=== PATIENT | female | born 1960 | race Caucasian/White ===

== ENCOUNTER 2017-10-25 10:10 | Emergency (ER) | payer OTHER ==
[~2017-10-25] VITALS: Ht 162.6 cm; Wt 76.2 kg
[~2017-10-25 10:10] MED LIST: CARAFATE1 GM PO; CHANTIX1 MG PO; DOXYCYCLINE HY100 MG; HYDROCODON-ACE1 EA10 PO; IBUPROFEN600 MG PO; LEVOFLOXACIN500 MG PO; LEVOTHYROXINE25 MCG PO; LEVOTHYROXINE75 MCG PO; OMEPRAZOLE20 MG PO; OMEPRAZOLE40 MG PO; PROZAC40 MG PO; RANITIDINE HCL150 MG; ROBAXIN500 MG PO; ZOFRAN4 MG PO
[2017-10-25] MEDS ORDERED: AMOX TR-K CLV1 EAC1 PO (10:24)
[2017-10-25] MEDS ORDERED: FLUCONAZOLE150 MG PO (10:24)
--- NOTE | 2017-10-25 15:53 | EKG ---
[facility] [address] [facility] [place] [address] Signed Normal sinus rhythm Normal ECG No previous ECGs available Confirmed by YOANA MCCORMICK MD ([id number]) on 10/25/2017 3:53:39 PM Electronically Signed By: YOANA MCCORMICK MD 10/25/17 1553 PATIENT NAME: MARYELLEN BATES Electrocardiogram DATE OF : 56 PHYSICIAN: YOANA MCCORMICK MD REPORT #: [id number] REPORT IS CONFIDENTIAL AND NOT TO BE RELEASED WITHOUT AUTHORIZATION
== END 2017-10-25 11:32 | disposition home or self-care (01) ==
LOC: ED 10:10
DX: R07.2 Precordial pain (principal); K21.9 Gastro-esophageal reflux disease without esophagitis; F17.200 Nicotine dependence, unspecified, uncomplicated; Z85.828 Personal history of other malignant neoplasm of skin; Z90.49 Acquired absence of other specified parts of digestive tract; Z98.890 Other specified postprocedural states; Z88.2 Allergy status to sulfonamides; Z88.0 Allergy status to penicillin; Z79.899 Other long term (current) drug therapy
CPT/HCPCS: 71045; 80053; 84484; 85025; 93005; 93010; 99284

== ENCOUNTER 2019-01-07 06:21 | Emergency (ER) | payer OTHER ==
[~2019-01-07] VITALS: Ht 162.6 cm; Wt 77.1 kg
--- OUTSIDE RECORDS SUMMARY | ~2019-01-07 | XMS | Clinical Summary ---
Demographics + + + | Address | [address] [place] [address] | | | [place] [address] | + + + | Home Phone | | + + + | Preferred Language | Unknown | + + + | Marital Status | Unknown | + + + | Jainism Affiliation | Unknown | + + + | Race | Unknown | + + + | Ethnic Group | Unknown | + + + Author + + + | Author | [facility] | | | and [facility] | + + + | Organization | [facility] | | | and [place] | + + + | Address | Unknown | + + + | Phone | Unavailable | + + + Care Team Providers + +------+ + | Care Voltage Tester Name | Role | Phone | + +------+ + PP | Unavailable | + +------+ + Allergies Not on File Medications Not on file Active Problems Not on file Social History + +-------+ +--------+------+ | Tobacco Use | Types | Packs/Day | Years | Date | | | | | Used | | + +-------+ +--------+------+ | Never Assessed | | | | | + +-------+ +--------+------+ + + + | Sex Assigned at | Date Recorded | | | | + + + | Not on file | | + + + + + + + | Job Start Date | Occupation | Industry | + + + + | Not on file | Not on file | Not on file | + + + + + + + + | Travel History | Travel Start | Travel End | + + + + + + | No recent travel history available. | + + Plan of Treatment + + + + + | Health [...] + Results Not on filefrom Last 3 Months"
--- OUTSIDE RECORDS SUMMARY | ~2019-01-07 | XMS | Encounter Summary ---
Demographics + + + | Address | [address] [place] [address] | | | [place] [address] | + + + | Home Phone | | + + + | Preferred Language | Unknown | + + + | Marital Status | Single | + + + | Restoration Affiliation | Unknown | + + + | Race | Unknown | + + + | Ethnic Group | Unknown | + + + Author + + + | Author | [facility] [employer] | + + + | Organization | [facility] [employer] | + + + | Address | Unknown | + + + | Phone | Unavailable | + + + Support +--------+ +---------+ + | Name | Relationship | Address | Phone | +--------+ +---------+ + | No,One | ECON | Unknown | | +--------+ +---------+ + Care Team Providers + +------+ + | Care Clerical Production Worker Name | Role | Phone | + [...] | keratosis | [address] Vill[address] | [address]AGNER Vlilatoro | | | | | Procedures | [address] | | | | | [place] PDT [address] | [address] | [address] | | | | | PRMLG LES | [place], [place] | [place], [place] | | | | | SKN | [address] | [address] Phone: | | | | | ILLUM/ACTIVJ | Phone: | [phone] | | | | | PER DAY [place] | [phone] | Fax: | | | | | | Fax: | [phone] | | | | | [place] | [phone] | | | | | | IC ACID HCL | | | | | | | TOP | | | +--------+--------+ + + + + Encounter Details +--------+ + + + + | Date | Type | Department | Care Team | Description | +--------+ + + + + | 10/17/ | Clinical | [facility] | Gabi Benton | Dermatitis, | | 2019 | Support | Plastic Surgery and | [address] | unspecified (Primary | | | | Dermatology [address] | [address] | Dx); Actinic | | | | [address] | [place] [address] | keratosis | | | | [place] | [phone] | | | | | [address] | | | | | | [phone] | | | +--------+ + + + [...] Weight | 77.6 kg (171 lb) | 10/17/2018 2:55 PM PST | + + + + | Height | - | - | + + + + | Body Mass Index | 28.9 | 10/17/2018 2:55 PM PST | + + + + in this encounter Instructions Patient Instructions - Adrianne Cook MA - 10/17/2018 2:56 PM PST After Procedure Instructions: Please take a [...] to cover and protect the treated area. [place] on cooled filtered water frequently and /or [...] Mupirocin antibiotic ointment to prevent infection. Take mgef-izh-hdwtvfc medications such as Motrin, Advil, Ibuprofen, or Tylenol if necess eva to reduce discomfort. Remember to eat when taking these medications. Apply 1% hydrocortisone ointment (available at the pharmacy without a prescription) if itching occurs. Benadryl tablets (25mgs) may be taken an hour before sleep if there is si gnificant itching before bed. Day 3-7: Minimize sun exposure by restricting outdoor activities to ready mix truck driver or late evening and by wearing a [...] cover up make-up can be purchased from [employer] that can be worn under your regular [...] encounter Progress Notes Gabi Benton ARNP - 10/17/2018 2:56 PM PSTFormatting of this note may be differ ent from the original. Procedure: Photodynamic Therapy (PDT) Tila Castle is a 58 y.o. female patient here for the treatment of: Actinic Keratosis Primary Areas of Concern: Face Present or recent treatment with: None History of cold sores on lips, face or other treatment areas. Preventative Valtrex ordered: no Patient will bring to the treatment: Broad Brimmed Hat Pre-treatment pictures taken: no Risks and benefts [...] removed if applicable. Acetone applied. Levulan applied. 1 stick(s) (aminolevulinic acid HCL 20%, 354 mg/1.5 ml per stick). [facility] 51862-137-75. Lot #: [id number] Exp. Date: 06/20 Incubation Time. 1 hour Safety goggles applied before treatment. Applied by: Adrianne Coronel Start Time: 4:00pm Pain: Tx Time: 7 min Pain: 6 End time:417 Tx Time: end 17 min Pain: 5 Assessment/Plan: Patient leaving office with sun protection: yes Patient will have at home: OTC Cream Pt tolerated treatment well and all questions were addressed and answered. Pt will call for questions or concerns and follow up as recommended. After care instructions given via AVS discharge. Follow up appointment made. Visit Diagnoses and Associated Orders: Tila was seen today for procedure. Dermatitis, unspecified - hydrocortisone 2.5 % cream; apply Actinic keratosis I, Adrianne Coronel CMA, am scribing for, and in the presence of DILAN Pearson , CHILD AND YOUTH PROGRAM ASSISTANT-SHAN, SARANYA I, MOON Pearson DCNP, personally performed [...] DR | | | | | | [place] [address] | | | | | | [phone] | | | | | | | | +--------+---------+ + + + as of this encounter Visit Diagnoses + + | Diagnosis | + + | Dermatitis, unspecified - Primary | + + | Actinic keratosis | + +"
--- OUTSIDE RECORDS SUMMARY | ~2019-01-07 | XMS | Encounter Summary ---
Demographics + + + | Address | [address] [place] [address] | | | [place] [address] | + + + | Home Phone | | + + + | Preferred Language | Unknown | + + + | Marital Status | Single | + + + | Scientologist Affiliation | Unknown | + + + | Race | Unknown | + + + | Ethnic Group | Unknown | + + + Author + + + | Author | [facility] [employer] | + + + | Organization | [facility] [employer] | + + + | Address | Unknown | + + + | Phone | Unavailable | + + + Support +--------+ +---------+ + | Name | Relationship | Address | Phone | +--------+ +---------+ + | No,One | ECON | Unknown | | +--------+ +---------+ + Care Team Providers + +------+ + | Care Butter Wrapper Name | Role | Phone | + [...] [address] | | | | | [place] PDT [address]STR | [address] | [address] | | | | | PRMLG LES | [place], [place] | [place], [place] | | | | | [place]N | [address] | [address] Phone: | | | | | ILLUM/ACTIVJ | Phone: | [phone] | | | | | PER DAY [place] | [phone] | Fax: | | | | | | Fax: | [phone] | | | | | [place] | [phone] | | | | | | IC ACID HCL | | | | | | | TOP | | | +--------+--------+ + + + + Encounter Details +--------+ + + + + | Date | Type | Department | Care Team | Description | +--------+ + + + + | 11/01/ | Clinical | [facility] | Gabi Benton | Actinic keratosis | | 2019 | Support | Plastic Surgery and | [address] | (Primary Dx) | | | | Dermatology [address] | [address] | | | | | [address] | [facility] [place] [address] | | | | | [place] | [phone] | | | | | [address] | | | | | | [phone] | | | +--------+ + + + [...] to cover and protect the treated area. [place] on cooled filtered water frequently and /or [...] Mupirocin antibiotic ointment to prevent infection. Take dngi-cyk-mxhakgx medications such as Motrin, Advil, Ibuprofen, or Tylenol if necess eva to reduce discomfort. Remember to eat when taking these medications. Apply 1% hydrocortisone ointment (available at the pharmacy without a prescription) if itching occurs. Benadryl tablets (25mgs) may be taken an hour before sleep if there is si gnificant itching before bed. Day 3-7: Minimize sun exposure by restricting outdoor activities to shactor helper or late evening and by wearing a [...] cover up make-up can be purchased from [employer] that can be worn under your regular [...] HCL 20%, 354 mg/1.5 ml per stick). [facility] 15420-049-66. Lot #: [id number] Exp. Date: 06/20 Incubation Time. 2 hour [...] the presence of Gabi Benton, MSN , IT SUPPORT MANAGER-SHAN, SARANYA I, MOON Pearson DCNP, personally performed [...] DR | | | | | | [place] [address] | | | | | | [phone] | | | | | | | | +--------+---------+ + + + as of this encounter Visit Diagnoses + + | Diagnosis | + + | Actinic keratosis - Primary | + +
--- OUTSIDE RECORDS SUMMARY | ~2019-01-07 | XMS | Encounter Summary ---
Demographics + + + | Address | [address] [place] [address] | | | [place] [address] | + + + | Home Phone | | + + + | Preferred Language | Unknown | + + + | Marital Status | Single | + + + | Congregational Affiliation | Unknown | + + + | Race | Unknown | + + + | Ethnic Group | Unknown | + + + Author + + + | Author | [facility] [employer] | + + + | Organization | [facility] [employer] | + + + | Address | Unknown | + + + | Phone | Unavailable | + + + Support +--------+ +---------+ + | Name | Relationship | Address | Phone | +--------+ +---------+ + | No,One | ECON | Unknown | | +--------+ +---------+ + Care Team Providers + +------+ + | Care Screen Operator Name | Role | Phone | + [...] [address] | | | | | [place] PDT [address]STR | [address] | [address] | | | | | PRMLG LES | [place], [place] | [place] | | | | | [place]N | [address] | [address] Phone: | | | | | ILLUM/ACTIVJ | Phone: | [phone] | | | | | PER DAY [place] | [phone] | Fax: | | | | | | Fax: | [phone] | | | | | [place] | [phone] | | | | | | IC ACID HCL | | | | | | | TOP | | | +--------+--------+ + + + + Encounter Details +--------+ + + + + | Date | Type | Department | Care Team | Description | +--------+ + + + + | 11/01/ | Clinical | [facility] | Gabi Benton | Actinic keratosis | | 2019 | Support | Plastic Surgery and | [address] | (Primary Dx) | | | | Dermatology [address] | [address] | | | | | [address] | [facility] [place] [place] [address] | | | | | [place] | [phone] | | | | | [address] | | | | | | [phone] | | | +--------+ + + + [...] to cover and protect the treated area. [place] on cooled filtered water frequently and /or [...] Mupirocin antibiotic ointment to prevent infection. Take mvwz-rxk-gmsklfk medications such as Motrin, Advil, Ibuprofen, or Tylenol if necess eva to reduce discomfort. Remember to eat when taking these medications. Apply 1% hydrocortisone ointment (available at the pharmacy without a prescription) if itching occurs. Benadryl tablets (25mgs) may be taken an hour before sleep if there is si gnificant itching before bed. Day 3-7: Minimize sun exposure by restricting outdoor activities to uke operator or late evening and by wearing a [...] cover up make-up can be purchased from [employer] that can be worn under your regular [...] ml per stick). [facility] [id number]. Lot #: [id number] Exp. Date: 06/20 Incubation Time. 2 hour [...] the presence of Gabi Benton, MSN , MMA FIGHTER-SHAN, SARANYA I, MOON Pearson DCNP, personally performed [...] DR | | | | | | [place] [address] | | | | | | [phone] | | | | | | | | +--------+---------+ + + + as of this encounter Visit Diagnoses + + | Diagnosis | + + | Actinic keratosis - Primary | + +
--- OUTSIDE RECORDS SUMMARY | ~2019-01-07 | XMS | Encounter Summary ---
Demographics + + + | Address | [address] [place] [address] | | | [place] [address] | + + + | Home Phone | | + + + | Preferred Language | Unknown | + + + | Marital Status | Single | + + + | Hinduism Affiliation | Unknown | + + + | Race | Unknown | + + + | Ethnic Group | Unknown | + + + Author + + + | Author | [facility] [employer] | + + + | Organization | [facility] [facility] | + + + | Address | Unknown | + + + | Phone | Unavailable | + + + Support +--------+ +---------+ + | Name | Relationship | Address | Phone | +--------+ +---------+ + | No,One | ECON | Unknown | | +--------+ +---------+ + Care Team Providers + +------+ + | Care Senior Business Broker Name | Role | Phone | + [...] [address] | | | | | [place] PDT [address]STR | [address] | [address] | | | | | PRMLG LES | [place], [place] | [place] | | | | | [place]N | [address] | [address] Phone: | | | | | ILLUM/ACTIVJ | Phone: | [phone] | | | | | PER DAY [place] | [phone] | Fax: | | | | | | Fax: | [phone] | | | | | [place] | [phone] | | | | | | IC ACID HCL | | | | | | | TOP | | | +--------+--------+ + + + + Encounter Details +--------+ + + + + | Date | Type | Department | Care Team | Description | +--------+ + + + + | 10/17/ | Clinical | [facility] | Gabi Benton | Dermatitis, | | 2019 | Support | Plastic Surgery and | [address] | unspecified (Primary | | | | Dermatology [address] | [address] | Dx); Actinic | | | | [address] | [place] [address] | keratosis | | | | [place] | [phone] | | | | | [address] | | | | | | [phone] | | | +--------+ + + + [...] to cover and protect the treated area. [place] on cooled filtered water frequently and /or [...] Mupirocin antibiotic ointment to prevent infection. Take cumv-raq-vdzjkey medications such as Motrin, Advil, Ibuprofen, or Tylenol if necess eva to reduce discomfort. Remember to eat when taking these medications. Apply 1% hydrocortisone ointment (available at the pharmacy without a prescription) if itching occurs. Benadryl tablets (25mgs) may be taken an hour before sleep if there is si gnificant itching before bed. Day 3-7: Minimize sun exposure by restricting outdoor activities to cyber legal advisor or late evening and by wearing a [...] cover up make-up can be purchased from [employer] that can be worn under your regular [...] ml per stick). [facility] [id number]. Lot #: [id number] Exp. Date: 06/20 Incubation Time. 1 hour [...] in the presence of DILAN Pearson , DIGITAL ANALYTICS MANAGER-SHAN, SARANYA I, MOON Pearson DCNP, personally [...] DR | | | | | | [place] [address] | | | | | | [phone] | | | | | | | | +--------+---------+ + + + as of this encounter Visit Diagnoses + + | Diagnosis | + + | Dermatitis, unspecified - Primary | + + | Actinic keratosis | + +"
--- OUTSIDE RECORDS SUMMARY | ~2019-01-07 | XMS | Clinical Summary ---
Demographics + + + | Address | [address] [place] [address] | | | [place] [address] | + + + | Home Phone | | + + + | Preferred Language | Unknown | + + + | Marital Status | Single | + + + | Taoist Affiliation | Unknown | + + + | Race | Unknown | + + + | Ethnic Group | Unknown | + + + Author + + + | Author | [facility] [employer] | + + + | Organization | [facility] [employer] [facility] | + + + | Address | Unknown | + + + | Phone | Unavailable | + + + Support +--------+ +---------+ + | Name | Relationship | Address | Phone | +--------+ +---------+ + | No,One | ECON | Unknown | | +--------+ +---------+ + Care Team Providers + +------+ + | Care Printing Manager Name | Role | Phone | + [...] | | e | | e 1 %-[id number] | | | | 18 | | [...] Gabi Benton | Actinic keratosis | | 2018 | Support | | [address] | (Primary Dx) | +--------+ + + + + | 10/17/ | Clinical | | Gabi Benton | Dermatitis, | | 2018 | Support | | [address] | unspecified (Primary | | | | | | Dx); Actinic | | | | | | keratosis | +--------+ + + + + from [...] | | Gabi Benton | | | 2018 | Visit | | [address] | | | | | | [address] | | | | | | [place] [address] | | | | | | [phone] | | | | | | | [...] +------+-------+ + | MEDICAID | [place] | [id number] | | | [address] | | | N | | | | [place] | | | [place] | | | | [address] | | | JUNIOR NETWORK ADMINISTRATOR | | | | | + +--------+ [...] | Self [birth year] Home: | [address] | | | al/Fam | | 1960 | [phone] | [place] [address] | | | evelio | | | [phone] | | + +--------+ +--------+ + +
--- OUTSIDE RECORDS SUMMARY | ~2019-01-07 | XMS | Clinical Summary ---
Demographics + + + | Address | [address] [place] [address] | | | [place] [address] | + + + | Home Phone [...] + + + | Author | [facility] [employer] | + + + | Organization | [facility] [employer] [facility] | + + + | Address | Unknown | + + + | Phone | Unavailable | + + + Support +--------+ +---------+ + | Name | Relationship | Address | Phone | +--------+ +---------+ + | No,One | ECON | Unknown | | +--------+ +---------+ + Care Team Providers + +------+ + | Care Car Loader Name | Role | Phone | + [...] | | e | | e 1 %-[id number] | | | | 18 | | [...] | | | | | [place] [address] | | | | | | [phone] | | | | | | | [...] +------+-------+ + | MEDICAID | [place] | [id number] | | | [address] | | | N | | | | [place] | | | [place] | | | | [address] | | | FIGURE MODEL | | | | | + +--------+ [...] | Self | [birth year] | Home: | [address] [facility] [facility] [facility] | | | al/Fam | | 1960 | [phone] | [place] [address] | | | evelio | | | [phone] | | + +--------+ +--------+ + +
--- OUTSIDE RECORDS SUMMARY | ~2019-01-07 | XMS | Clinical Summary ---
Demographics + + + | Address | [address] [place] [address] | | | [place] [address] | + + + | Home Phone | | + + + | Preferred Language | Unknown | + + + | Marital Status | Unknown | + + + | Alevism Affiliation | Unknown | + + + | Race | Unknown | + + + | Ethnic Group | Unknown | + + + Author + + + | Author | [facility] | | | and [facility] | + + + | Organization | [facility] | | | and [place] | + + + | Address | Unknown | + + + | Phone | Unavailable | + + + Care Team Providers + +------+ + | Care Wash Driller Name | Role | Phone | + [...]
[~2019-01-07 06:21] MED LIST changes: +AMOX TR-K CLV1 EAC1 PO; +COMBIVENT RESPIM4 GM INH; +FLONASE ALLERG9.9 ML NAS; +FLUCONAZOLE150 MG PO; +G TUSSIN AC LI473 ML PO; +LEVAQUIN500 MG PO; +METFORMIN HCL500 MG PO
--- OUTSIDE RECORDS SUMMARY | 2019-01-07 06:24 | XMS ---
PreManage Notification: MARYELLEN BATES Security Cut Off Sawyer Log Events No recent Security Events currently on file CRITERIA MET - [facility] - Has Care Guidelines CARE PROVIDERS GEOVANI GROSS Hospitalist 09/12/2018-Current PHONE: Unknown Amalia has no Care Guidelines for this patient. Care History Medical/Surgical 09/13/2018 [facility] - Patient is currently established with [facility]. If patient is seen in the ED during business hours. Please contact CHWs at [facility]. Care Recommendation: This patient has had 5 or more Emergency Department visits in the last 12 months.\T\nbsp; Patient requires education on the scope and purpose of the ED as an acute care provider not a Primary Care Provider and should not be utilized for chronic conditions.\T\nbsp; These are guidelines and the provider should exercise clinical judgment when providing care. E.D. VISIT COUNT (12 MO.) 3 [facility] TOTAL 3 NOTE: Visits indicate total known visits. ED/UCC VISIT TRACKING (12 MO.) 01/07/2019 06:21 [facility] [place] TYPE: Emergency COMPLAINT: - ABD PAIN/BACK PAIN 09/12/2018 13:51 [facility] [place] TYPE: Emergency COMPLAINT: - FEVER DIAGNOSES: - Other manager terminal (current) drug therapy - Gastro-esophageal reflux disease without esophagitis - Allergy status to sulfonamides status - Bronchitis, not specified as acute or chronic - Personal history of nicotine dependence - Fever, unspecified - rodent exterminator (current) use of oral hypoglycemic drugs - Chronic sinusitis, unspecified - Allergy status to other antibiotic agents status 09/08/2018 13:35 [facility] [place] TYPE: Emergency COMPLAINT: - COUGH/CONGESTION DIAGNOSES: - Cough INPATIENT VISIT TRACKING (12 MO.) No inpatient visits to display in this time frame [email or web address]
[2019-01-07] MEDS ORDERED: DICYCLOMINE HCL20 MG PO (09:53)
== END 2019-01-07 10:12 | disposition home or self-care (01) ==
LOC: ED 06:21
DX: R10.11 Right upper quadrant pain (principal); R10.12 Left upper quadrant pain; F17.200 Nicotine dependence, unspecified, uncomplicated; Z88.2 Allergy status to sulfonamides; Z88.1 Allergy status to other antibiotic agents
CPT/HCPCS: 74177; 80053; 81001; 83690; 85025; 96374; 96375; 99284-25; 99406; J1170; J2405; Q9967

== ENCOUNTER 2019-01-23 10:28 | Emergency (ER) | payer OTHER ==
[~2019-01-23] VITALS: Ht 162.6 cm; Wt 77.6 kg
--- OUTSIDE RECORDS SUMMARY | ~2019-01-23 | XMS | Clinical Summary ---
Demographics + + + | Address | [id number] [place] [address] | | | [place] [address] | + + + | Home Phone | | + + + | Preferred Language | Unknown | + + + | Marital Status | Single | + + + | Scientology Affiliation | Unknown | + + + | Race | Unknown | + + + | Ethnic Group | Unknown | + + + Author + + + | Author | [facility] | + + + | Organization | [facility] | + + + | Address | Unknown | + + + | Phone | Unavailable | + + + Support +--------+ +---------+ + | Name | Relationship | Address | Phone | +--------+ +---------+ + | No,One | ECON | Unknown | | +--------+ +---------+ + Care Team Providers + +------+ + | Care Counter Weigher Name | Role | Phone | + +------+ + | Patrice Chance MD | PP | | + +------+ + Allergies + + + + + + | Active Allergy | Reactions | Severity | Noted | Comments | | | | | Date | | + + + + + + | Amoxicillin-Pot | Other (See Comments) | Medium | 06/10/20 | Yeast infection | | Clavulanate | | | 18 | | + + + + + + | Azithromycin | Nausea and Vomiting | Low | 10/13/19 | | | | | | 19 | | + + + + + + | Sulfa Antibiotics | Other (See Comments) | Medium | 06/10/20 | Pt stated that | | | | | 18 | cannot focus when on | | | | | | the medication | + + + + + + Current Medications + + +--------+---------+------+------+-------+ | Prescription | Sig. | Disp. | Refills | Star | End | Statu | | | | | | t | Date | s | | | | | | Date | | | + + +--------+---------+------+------+-------+ | levothyroxine | | | | 09 | | Activ | | (SYNTHROID) 88 MCG | | | | 02/17 | | e | | tablet | | | | 18 | | | + + +--------+---------+------+------+-------+ | omeprazole | | | | 05/01 | | Activ | | (PRILOSEC) 20 MG | | | | 8/20 | | e | | capsule | | | | 18 | | | + + +--------+---------+------+------+-------+ | CHANTIX CONTINUING | | | | 05/02 | | Activ | | MONTH FLOR 1 MG | | | | 2 | | e | | tablet | | | | 18 | | | + + +--------+---------+------+------+-------+ | hydrocortisone 2.5 | Apply 1-2 times | 30 g | 3 | 10/01 | 10/01 | Activ | | % creamIndications: | daily to itchy dry | | | 04/19 | 04/19 | e | | Dermatitis, | face.. Best applied | | | 19 | 20 | | | unspecified | to damp skin. | | | | | | + + +--------+---------+------+------+-------+ | albuterol | Inhale 2 puffs into | | | | | Activ | | (PROVENTIL | the lungs every 4 | | | | | e | | HFA;VENTOLIN HFA) | (four) hours as | | | | | | | 108 (90 Base) | needed for Wheezing. | | | | | | | MCG/ACT inhaler | | | | | | | + + +--------+---------+------+------+-------+ + + + + +------+------+-------+ | Hospital, Clinic, or | Ordered | Route | Frequency | Star | End | Statu | | Other Facility | Dose | | | t | Date | s | | Administered | | | | Date | | | | Medication | | | | | | | + + + + +------+------+-------+ | | 1 mL | INFILTRA | Once | 10/2 | | Activ | | lidocaine-EPINEPHrin | | TION | | 6/20 | | e | | e 1 %-1:[id number] | | | | 18 | | | | injection 1 | | | | | | | | mLIndications: | | | | | | | | Neoplasm of | | | | | | | | uncertain behavior | | | | | | | | of skin | | | | | | | + + + + +------+------+-------+ Active Problems No known active problems Encounters +--------+ + + + + | Date | Type | Specialty | Care Team | Description | +--------+ + + + + | 11/01/ | Clinical | | Gabi Benton | Actinic keratosis | | 2019 | Support | | [facility] | (Primary Dx) | +--------+ + + + + from Last 3 Months Social History + +-------+ +--------+------+ | Tobacco Use | Types | Packs/Day | Years | Date | | | | | Used | | + +-------+ +--------+------+ | Former Smoker | | | | | + +-------+ +--------+------+ + +---+---+---+ | Smokeless Tobacco: | | | | | Never Used | | | | + +---+---+---+ + + + | Sex Assigned at | Date Recorded | | | | + + + | Not on file | | + + + Last Filed Vital Signs + + + + | Vital Sign | Reading | Time Taken | + + + + | Blood Pressure | - | - | + + + + | Pulse | - | - | + + + + | Temperature | - | - | + + + + | Respiratory Rate | - | - | + + + + | Oxygen Saturation | - | - | + + + + | Inhaled Oxygen | - | - | | Concentration | | | + + + + | Weight | 77.6 kg (171 lb) | 11/01/2018 9:26 AM PST | + + + + | Height | 163 cm (5' 4.17") | 11/01/2018 9:26 AM PST | + + + + | Body Mass Index | 29.19 | 11/01/2018 9:26 AM PST | + + + + Plan of Treatment +--------+---------+ + + + | Date | Type | Specialty | Care Team | Description | +--------+---------+ + + + | 01/29/ | Office | | Gabi Benton | | | 2019 | Visit | | [facility] [address] | | | | | | [address] | | | | | | [place] [address] | | | | | | [phone] | | | | | | | | +--------+---------+ + + + + + + + + | Health Maintenance | Due Date | Last Done | Comments | + + + + + | Vaccine: | | | | | Dtap/Tdap/Td (1 - | 7 | | | | Tdap) | | | | + + + + + | Cervical Cancer | | | | | Screening (Pap) | 8 | | | + + + + + | Breast Cancer | | | | | Screening | 8 | | | | (Mammogram) | | | | + + + + + | Colon Cancer | | | | | Screening | 8 | | | | (Colonoscopy) | | | | + + + + + | Vaccine: Zoster (1 | | | | | of 2) | 8 | | | + + + + + | Vaccine: Influenza | | | | | (Season Ended) | 9 | | | + + + + + Results Not on filefrom Last 3 Months Insurance + +--------+ +------+-------+ + | Payer | Benefi | Subscriber | Type | Phone | Address | | | t Plan | ID | | | | | | / | | | | | | | Group | | | | | + +--------+ +------+-------+ + | MEDICAID | [employer] | [id number] | | | [address] | | | N | | | | [place] | | | [place] | | | | [phone] | | | 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
--- OUTSIDE RECORDS SUMMARY | ~2019-01-23 | XMS | Clinical Summary ---
Demographics + + + | Address | [address] [place] [address] | | | [place] [address] | + + + | Home Phone | | + + + | Preferred Language | Unknown | + + + | Marital Status | Single | + + + | Christian Affiliation | Unknown | + + + | Race | Unknown | + + + | Ethnic Group | Unknown | + + + Author + + + | Author | [facility] | + + + | Organization | [facility] | + + + | Address | Unknown | + + + | Phone | Unavailable | + + + Support +--------+ +---------+ + | Name | Relationship | Address | Phone | +--------+ +---------+ + | No,One | ECON | Unknown | | +--------+ +---------+ + Care Team Providers + +------+ + | Care Car Worker Helper Name | Role | Phone | + [...] | | e | | e 1 %-1:[id number] | | | | [address] | | [address] | | | | | | [place] [address] | | | | | | [phone] | | | | | | | [...] +------+-------+ + | MEDICAID | [employer] | [id number] | | | [address] | | | N | | | | [place] | | | [place] | | | | [address] | | | 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
--- OUTSIDE RECORDS SUMMARY | ~2019-01-23 | XMS | Encounter Summary ---
Demographics + + + | Address | [address] | | | [place] [address] | + + + | Home Phone | | + + + | Preferred Language | Unknown | + + + | Marital Status | Single | + + + | Jain Affiliation | Unknown | + + + | Race | Unknown | + + + | Ethnic Group | Unknown | + + + Author + + + | Author | [facility] | + + + | Organization | [facility] | + + + | Address | Unknown | + + + | Phone | Unavailable | + + + Support +--------+ +---------+ + | Name | Relationship | Address | Phone | +--------+ +---------+ + | No,One | ECON | Unknown | | +--------+ +---------+ + Care Team Providers + +------+ + | Care Customer Relations Representative Name | Role | Phone | + +------+ + | Patrice Chance MD | PCP | | + +------+ + Reason for Visit + + + | Reason | Comments | + + + | Procedure | | + + + Consult and Treat (Routine) +--------+--------+ + + + + | Status | Reason | Specialty | Diagnoses / | Referred By | Referred To | | | | | Procedures | Contact | Contact | +--------+--------+ + + + + | Closed | | Dermatology / | Diagnoses | [facility], | [facility], | | | | Plastic | Actinic | Gabi | Gabi | | | | Surgery | keratosis | [facility] | [facility]AGNER Villatoro | | | | | Procedures | [address] | | | | | [place] PDT [address]STR | [address] | [address] | | | | | PRMLG LES | [place], [place] | [place], [place] | | | | | [place]N | [address] | [address] Phone: | | | | | ILLUM/ACTIVJ | Phone: | [phone] | | | | | PER DAY [place] | [phone] | Fax: | | | | | | Fax: | [phone] | | | | | AMINOLEVULIN | [phone] | | | | | | IC ACID HCL | | | | | | | TOP | | | +--------+--------+ + + + + Encounter Details +--------+ + + + + | Date | Type | Department | Care Team | Description | +--------+ + + + + | 11/01/ | Clinical | [facility] | Gabi Benton | Actinic keratosis | | 2019 | Support | Plastic Surgery and | [facility] [address] | (Primary Dx) | | | | Dermatology [address] | [address] | | | | | [address] | [facility] [place] [address] | | | | | [place] | [phone] | | | | | [address] | | | | | | [phone] | | | +--------+ + + + + Social History + +-------+ +--------+------+ | Tobacco [...] on file | | + + + as of this encounter Last Filed Vital Signs + + + [...] AM PST | + + + + in this encounter Instructions Patient Instructions - Adrianne Cook MA - 11/01/2018 9:26 AM PST After Procedure Instructions: Please take a shower in cool water after returning home from treatment. Use a mild soap or just rinse the treated area well to remove all Levulan. If you wish, you may begin applying pure Aloe directly from the plant leaf to reduce dis comfort. The aloe plant leaves maybe refrigerated for added relief of discomfort. Begin applying ice packs or frozen peas to treated area. This will help keep the area co ol and reduce discomfort, as well as keep down swelling. Swelling will be most evident aroun d the eyes and is usually more prominent in the morning. Cold compresses using ice water ma y be repeated for 20 minutes every hour. Remain indoors and avoid direct sunlight i.e. (sitting in the shade, sitting next to a w indow or riding in a car for the first 48 hours.) You may go outdoors only after dark. If yo u have an emergency and have to go out during daylight you need to wear a scarf, a broad cathie mmed hat or appropriate clothing to cover and protect the treated area. Ace on cooled filtered water frequently and /or apply natural aloe from the plant leaf frequently to promote comfort. If clear water blisters form, you can compress the treated area with a clean washc loth or gauze soaked in a solution of 1tsp. white vinegar in 1 cup of cold water. Ice can be applied directly over the vinegar soaks. After compressing and applying ice for approximate ly 20 minutes, the area should be patted dry and Vaseline applied. Follow this procedure ev gerry 4-6 hours during your waking hours. If the blisters break, follow the above procedure bu t use Polysporin or Mupirocin antibiotic ointment to prevent infection. Take czzm-qlu-qkrqirk medications such as Motrin, Advil, Ibuprofen, or Tylenol if necess eva to reduce discomfort. Remember to eat when taking these medications. Apply 1% hydrocortisone ointment (available at the pharmacy without a prescription) if itching occurs. Benadryl tablets (25mgs) may be taken an hour before sleep if there is si gnificant itching before bed. Day 3-7: Minimize sun exposure by restricting outdoor activities to drilling superintendent or late evening and by wearing a hat or protective clothing. Please try to avoid mid-day sun. Always wear s un block! Continue to take pain medications as needed and apply ice packs as need to alleviate dis comfort and swelling. The discomfort usually subsides between 48-72 hours following treatmen t.. Re-apply natural aloe, barrier cream or Vaseline at least twice a day and as needed. Once the crusting subsides, the treated area may be pink or red. This will gradually sub side over a period of 4 to 8 weeks. A green based cover up make-up can be purchased from [facility] that can be worn under your regular make-up to help cancel out the redness from the treatment. After Day 7 You may begin applying make-up once any crusting has healed. This usually occurs at 5 t o 7 days following treatment. A thin coat of Vaseline petroleum jelly or a plain moisturize r (e.g. Cetaphil, Camille, or Lubriderm) can be used, as the treated area may feel dry and tigh t at first. Minimize sun exposure for the next week and if you do go outdoors use sunblock of SPF 30 or greater. Sunblock must be used on a daily basis thereafter to help prevent further actin ic damage. Note: If you have a problem please call our office at . in this encounter Progress Notes Gabi Benton ARNP - 11/01/2018 9:00 AM PSTFormatting of this note may be differ ent from the original. Procedure: Photodynamic Therapy (PDT) Tila Castle is a 58 y.o. female patient here for the treatment of: Actinic Keratosis Primary Areas of Concern: Forearms Present or recent treatment with: None History of cold sores on lips, face or other treatment areas. Preventative Valtrex ordered: no Patient will bring to the treatment: Long Sleeved Shirt Pre-treatment pictures taken: no Risks and benefts of PDT explained : yes PDT treatment explained in detail: yes Written post treatment instructions given: yes Patient committed to stay out of direct & indirect sun for 48 hrs. after treatment: yes Patient understands that they may not appear socially acceptable for the week after treatme nt: yes Discussion of post-treatment pain/discomfort control: yes PDT Trx Tracking Task/Treatment Treatment area cleansed with soap and water and make up removed if applicable. Acetone applied. Levulan applied. 2 stick(s) (aminolevulinic acid HCL 20%, 354 mg/1.5 ml per stick). [facility] 52505-003-05. Lot #: [id number] Exp. Date: 06/20 Incubation Time. 2 hour Safety goggles applied before treatment. Applied by: Adrianne Coronel Start Time: 1115 Pain: 0 Tx Time: 7 min Pain: 0 End time: Tx Time: end 17 min Pain: 1 Assessment/Plan: Patient leaving office with sun protection: yes Patient will have at home: OTC Cream Pt tolerated treatment well and all questions were addressed and answered. Pt will call for questions or concerns and follow up as recommended. After care instructions given via AVS discharge. Follow up appointment made. Visit Diagnoses and Associated Orders: Tila was seen today for procedure. Actinic keratosis I, Adrianne Coronel CMA, am scribing for, and in the presence of Gabi Benton, MSN , AIR FORCE SENIOR OFFICER-SHAN, SARANYA I, MOON Pearson DCNP, personally performed the services described in this documen tation, as scribed by Adrianne Coronel CMA, in my presence, and it is both accurate and complete. in this encounter Plan of Treatment +--------+---------+ + + + | Date | Type | Specialty | Care Team | Description | +--------+---------+ + + + | 01/29/ | Office | Plastic Surgery | Gabi Benton | | | 2018 | Visit | | [facility] [address] | | | | | | [address] | | | | | | [place] [address] | | | | | | [phone] | | | | | | | | +--------+---------+ + + + as of this encounter Visit Diagnoses + + | Diagnosis | + + | Actinic keratosis - Primary | + +
--- OUTSIDE RECORDS SUMMARY | ~2019-01-23 | XMS | Clinical Summary ---
Demographics + + + | Address | [id number] [place] [address] | | | [place] [address] | + + + | Home Phone | | + + + | Preferred Language | Unknown | + + + | Marital Status | Unknown | + + + | Adventism Affiliation | Unknown | + + + | Race | Unknown | + + + | Ethnic Group | Unknown | + + + Author + + + | Author | [facility] | | | and [facility] | + + + | Organization | [facility] | | | and [facility] | + + + | Address | Unknown | + + + | Phone | Unavailable | + + + Care Team Providers + +------+ + | Care Truss Puller Helper Name | Role | Phone | [...]
--- OUTSIDE RECORDS SUMMARY | ~2019-01-23 | XMS | Encounter Summary ---
Demographics + + + | Address | [address] | | | [place] [address] | + + + | Home Phone | | + + + | Preferred Language | Unknown | + + + | Marital Status | Single | + + + | Roman Catholic Affiliation | Unknown | + + + | Race | Unknown | + + + | Ethnic Group | Unknown | + + + Author + + + | Author | [facility] | + + + | Organization | [facility] | + + + | Address | Unknown | + + + | Phone | Unavailable | + + + Support +--------+ +---------+ + | Name | Relationship | Address | Phone | +--------+ +---------+ + | No,One | ECON | Unknown | | +--------+ +---------+ + Care Team Providers + +------+ + | Care Assistant Professor Of Communication Name | Role | Phone | + [...] [address] | | | | | [place] PDT [address] | [address] | | | | | PR[address] LES | [place], [place] | [place], [place] | | | | | [place] | [address] | [address] Phone: | | | | | ILLUM/ACTIVJ | Phone: | [phone] | | | | | PER DAY [place] | [phone] | Fax: | | | | | | Fax: | [phone] | | | | | [place] | [phone] | | | | | | IC ACID HCL | | | | | | | TOP | | | +--------+--------+ + + + + Encounter Details +--------+ + + + + | Date | Type | Department | Care Team | Description | +--------+ + + + + | 11/01/ | Clinical | [facility] | Gabi Benton | Actinic keratosis | | 2019 | Support | Plastic Surgery and | [facility] [address] | (Primary Dx) | | | | Dermatology [address] | [address] | | | | | [address] | [place] [address] | | | | | [place] | [phone] | | | | | [address] | | | | | | [phone] | | | +--------+ + + + [...] to cover and protect the treated area. Daykin on cooled filtered water frequently and /or [...] Mupirocin antibiotic ointment to prevent infection. Take zsmn-xix-deerjel medications such as Motrin, Advil, Ibuprofen, or Tylenol if necess eva to reduce discomfort. Remember to eat when taking these medications. Apply 1% hydrocortisone ointment (available at the pharmacy without a prescription) if itching occurs. Benadryl tablets (25mgs) may be taken an hour before sleep if there is si gnificant itching before bed. 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 [facility] 52004-050-08. Lot #: [id number] Exp. Date: 06/20 Incubation Time. 2 hour [...] the presence of Gabi Benton, MSN , GAS OPERATION MANAGER-SHAN, SARANYA I, MOON Pearson DCNP, personally [...] DR | | | | | | [place] [address] | | | | | | [phone] | | | | | | | | +--------+---------+ + + + as of this encounter Visit Diagnoses + + | Diagnosis | + + | Actinic keratosis - Primary | + +
--- OUTSIDE RECORDS SUMMARY | ~2019-01-23 | XMS | Clinical Summary ---
Demographics + + + | Address | [address] [place] [address] | | | [place] [address] | + + + | Home Phone | | + + + | Preferred Language | Unknown | + + + | Marital Status | Unknown | + + + | Congregational Affiliation | Unknown | + + + | Race | Unknown | + + + | Ethnic Group | Unknown | + + + Author + + + | Author | [facility] | | | and [facility] | + + + | Organization | [facility] | | | and [facility] | + + + | Address | Unknown | + + + | Phone | Unavailable | + + + Care Team Providers + +------+ + | Care Road Service Locksmith Name | Role | Phone | + [...]
[~2019-01-23 10:28] MED LIST changes: +DICYCLOMINE HCL20 MG PO
--- OUTSIDE RECORDS SUMMARY | 2019-01-23 10:30 | XMS ---
PreManage Notification: MARYELLEN BATES Security Cooking Chef Events No recent Security Events currently on file CRITERIA MET - [facility] - Has Care Guidelines - [facility] - 2 Visits in 30 Days CARE PROVIDERS GEOVANI GROSS Hospitalist 09/12/2018-Current PHONE: Unknown Amalia has no Care Guidelines for this patient. Care History Medical/Surgical 09/13/2018 [facility] - Patient is currently established with [facility]. If patient is seen in the ED during business hours. Please contact CHWs at [facility]. Care Recommendation: This patient has had 5 [...] providing care. E.D. VISIT COUNT (12 MO.) 4 [facility] TOTAL 4 NOTE: Visits indicate total known visits. ED/UCC VISIT TRACKING (12 MO.) 01/23/2019 10:29 [facility] [place] TYPE: Emergency COMPLAINT: - COUGH/SOB 01/07/2019 06:21 [facility] [place] TYPE: Emergency COMPLAINT: - ABD PAIN/BACK PAIN DIAGNOSES: - Left upper quadrant pain - Right upper quadrant pain - Allergy status to sulfonamides status - Unspecified abdominal pain - Allergy status to other antibiotic agents status - Nicotine dependence, unspecified, uncomplicated 09/12/2018 13:51 [facility] [place] TYPE: Emergency COMPLAINT: - FEVER DIAGNOSES: - Other detention (current) drug therapy - Gastro-esophageal reflux disease without esophagitis - Allergy status to sulfonamides status - Bronchitis, not specified as acute or chronic - Personal history of nicotine dependence - Fever, unspecified - FDC (current) use of oral hypoglycemic drugs - Chronic sinusitis, unspecified - Allergy status to other antibiotic agents status 09/08/2018 13:35 [facility] [place] TYPE: Emergency COMPLAINT: - COUGH/CONGESTION DIAGNOSES: - Cough INPATIENT VISIT TRACKING (12 MO.) No inpatient visits to display in this time frame [email or web address]
[2019-01-23] MEDS ORDERED: ZOFRAN4 MG SL (11:28)
[2019-01-23] MEDS ORDERED: DOXYCYCLINE HY100 MG PO (11:28)
[2019-01-23] MEDS ORDERED: MECLIZINE HCL25 MG PO (11:28)
[2019-01-23] MEDS ORDERED: DELTASONE20 MG PO (11:28)
--- NOTE | 2019-01-26 08:03 | EKG ---
[facility] [address] [place] [address] Signed Normal sinus rhythm Normal ECG When compared with ECG of 25-OCT-2017 10:18, No significant change was found Confirmed by BIN RODAS MD ([id number]) on 01/26/2019 8:03:27 AM Electronically Signed By: BIN RODAS MD 01/26/19 0803 PATIENT NAME: MARYELLEN BATES AIDEN Electrocardiogram DATE OF : 56 PHYSICIAN: BIN RODAS MD REPORT #: [id number] REPORT IS CONFIDENTIAL AND NOT TO BE RELEASED WITHOUT AUTHORIZATION
== END 2019-01-23 11:36 | disposition home or self-care (01) ==
LOC: ED 10:28
DX: J40 Bronchitis, not specified as acute or chronic (principal); J98.01 Acute bronchospasm; R42 Dizziness and giddiness; K21.9 Gastro-esophageal reflux disease without esophagitis; F17.200 Nicotine dependence, unspecified, uncomplicated; Z85.828 Personal history of other malignant neoplasm of skin; Z88.2 Allergy status to sulfonamides; Z88.1 Allergy status to other antibiotic agents
CPT/HCPCS: 71045; 93005; 93010; 94640; 99283-25

== ENCOUNTER 2019-01-29 01:15 | Emergency (ER) | payer OTHER ==
[~2019-01-29] VITALS: Ht 162.6 cm; Wt 77.1 kg
[~2019-01-29 01:15] MED LIST changes: +DELTASONE20 MG PO; +DOXYCYCLINE HY100 MG PO; +MECLIZINE HCL25 MG PO; +ZOFRAN4 MG SL
--- OUTSIDE RECORDS SUMMARY | 2019-01-29 01:18 | XMS ---
PreManage Notification: MARYELLEN BATES Security Product Introduction Manager Events No recent Security Events currently on file CRITERIA MET - [facility] - Has Care Guidelines - [facility] - 2 Visits in 30 Days CARE PROVIDERS GEOVANI GROSS Hospitalist 09/12/2018-Current PHONE: Unknown Amalia has no Care Guidelines for this patient. Care History Medical/Surgical 09/13/2018 [facility] - Patient is currently established with [facility]. If patient is seen in the ED during business hours. Please contact [facility] at [facility]. Care Recommendation: This patient has had 5 [...] providing care. E.D. VISIT COUNT (12 MO.) 5 [facility] TOTAL 5 NOTE: Visits indicate total known visits. ED/UCC VISIT TRACKING (12 MO.) 01/29/2019 01:17 [facility] TYPE: Emergency COMPLAINT: - WEAKNESS 01/23/2019 10:29 [facility] TYPE: Emergency COMPLAINT: - COUGH/SOB DIAGNOSES: - Allergy status to other antibiotic agents status - Acute bronchospasm - Allergy status to sulfonamides status - Personal history of other malignant neoplasm of skin - Bronchitis, not specified as acute or chronic - Gastro-esophageal reflux disease without esophagitis - Dizziness and giddiness - Nicotine dependence, unspecified, uncomplicated - Cough 01/07/2019 06:21 [facility] TYPE: Emergency COMPLAINT: - ABD PAIN/BACK PAIN DIAGNOSES: - Left upper quadrant pain - Right upper quadrant pain - Allergy status to sulfonamides status - Unspecified abdominal pain - Allergy status to other antibiotic agents status - Nicotine dependence, unspecified, uncomplicated 09/12/2018 13:51 [facility] TYPE: Emergency COMPLAINT: - FEVER DIAGNOSES: - 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 - Gastro-esophageal reflux disease without esophagitis - Allergy status to sulfonamides status - Bronchitis, not specified as acute or chronic - Personal history of nicotine dependence - Fever, unspecified - truck terminal manager (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
[2019-01-29] MEDS ORDERED: LEVOTHYROXINE88 MCG PO (01:24)
[2019-01-29] MEDS ORDERED: FORTAMET500 MG PO (01:25)
[2019-01-29] MEDS ORDERED: OMEPRAZOLE20 MG PO (01:25)
--- NOTE | 2019-01-29 23:19 | EKG ---
[facility] [address] [place] [address] Signed Sinus bradycardia Otherwise normal ECG When compared with ECG of 23-JAN-2019 10:55, No significant change was found Confirmed by NANI LYLES DO ([id number]) on 01/29/2019 11:19:30 PM Electronically Signed By: NANI LYLES DO 01/29/19 2319 PATIENT NAME: MARYELLEN BATES AIDEN Electrocardiogram DATE OF : 56 PHYSICIAN: NANI LYLES DO REPORT #: [id number] REPORT IS CONFIDENTIAL AND NOT TO BE RELEASED WITHOUT AUTHORIZATION
== END 2019-01-29 03:51 | disposition home or self-care (01) ==
LOC: ED 01:15
DX: R55 Syncope and collapse (principal); E86.0 Dehydration; K21.9 Gastro-esophageal reflux disease without esophagitis; F17.200 Nicotine dependence, unspecified, uncomplicated; Z88.1 Allergy status to other antibiotic agents; Z88.2 Allergy status to sulfonamides; Z79.899 Other long term (current) drug therapy; Z79.84 Long term (current) use of oral hypoglycemic drugs
CPT/HCPCS: 80053; 81001; 84484; 85025; 93005; 93010; 96360; 99284-25; J7030

== ENCOUNTER 2019-01-29 13:24 | Emergency (ER) | payer OTHER ==
[~2019-01-29] VITALS: Ht 162.6 cm; Wt 77.1 kg
[~2019-01-29 13:24] MED LIST changes: +FORTAMET500 MG PO; +LEVOTHYROXINE88 MCG PO
--- OUTSIDE RECORDS SUMMARY | 2019-01-29 13:26 | XMS ---
PreManage Notification: MARYELLEN BATES Security Inspector Subassemblies Events No recent Security Events currently on file CRITERIA MET - 6 ED Visits in 6 Months - [facility] - Has Care Guidelines - [facility] - 2 Visits in 30 Days CARE PROVIDERS GEOVANI GROSS Hospitalist 09/12/2018-Current PHONE: Unknown Amalia has no Care Guidelines for this patient. Care History Medical/Surgical 09/13/2018 [facility] - Patient is currently established with [facility]. If patient is seen in the ED during business hours. Please contact CHWs at [facility]. Care Recommendation: This patient has had 5 [...] providing care. E.D. VISIT COUNT (12 [address] [facility]. TOTAL 6 NOTE: Visits indicate total known visits. 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 [place] TYPE: Emergency COMPLAINT: - COUGH/CONGESTION DIAGNOSES: - Cough INPATIENT VISIT TRACKING (12 MO.) No inpatient visits to display in this time frame [id number]
== END 2019-01-29 15:43 | disposition home or self-care (01) ==
LOC: ED 13:24
DX: K52.9 Noninfective gastroenteritis and colitis, unspecified (principal); K21.9 Gastro-esophageal reflux disease without esophagitis; F17.200 Nicotine dependence, unspecified, uncomplicated; Z88.1 Allergy status to other antibiotic agents; Z88.2 Allergy status to sulfonamides; Z79.899 Other long term (current) drug therapy; Z79.84 Long term (current) use of oral hypoglycemic drugs
CPT/HCPCS: 80053; 85025; 93005; 93010; 96361; 96374; 99284-25; J2405; J7030

== ENCOUNTER 2019-06-14 14:46 | Emergency (ER) | payer OTHER ==
[~2019-06-14] VITALS: Ht 162.6 cm; Wt 77.1 kg
--- OUTSIDE RECORDS SUMMARY | 2019-06-14 14:48 | XMS ---
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 - Has Care Guidelines CARE PROVIDERS GEOVANI GROSS Internal Medicine 09/12/2018-Current PHONE: Unknown Amalia has no Care Guidelines for this patient. Care History Medical/Surgical 09/13/2018 [facility] - Patient is currently established with [facility]. If patient is seen in the ED during business hours. Please contact CHWs at [facility]. Care Recommendation: This patient has had [...] providing care. E.D. VISIT COUNT (12 MO[address] [facility] TOTAL 7 NOTE: Visits indicate total known visits. ED/UCC VISIT TRACKING (12 MO.) 06/14/2019 14:47 [facility] TYPE: Emergency COMPLAINT: - BACK AND RIB PAIN, NON INJ 01/29/2019 13:25 [facility] TYPE: Emergency COMPLAINT: - WEAKNESS AND DIARRHEA DIAGNOSES: - Nicotine dependence, unspecified, uncomplicated - Gastro-esophageal reflux disease without esophagitis - custodial (current) use of oral hypoglycemic drugs - Allergy status to sulfonamides status - Noninfective gastroenteritis and colitis, unspecified - Allergy status to other antibiotic agents status - Diarrhea, unspecified - Other senior care (current) drug therapy 01/29/2019 01:17 [facility] TYPE: Emergency COMPLAINT: - WEAKNESS DIAGNOSES: - Allergy status to other antibiotic agents status - Gastro-esophageal reflux disease without esophagitis - Syncope and collapse - Nicotine dependence, unspecified, uncomplicated - Dehydration - Other terminal gauger (current) drug therapy - Allergy status to sulfonamides status - custodial (current) use of oral hypoglycemic drugs 01/23/2019 10:29 [facility] TYPE: Emergency [...] Emergency COMPLAINT: - FEVER DIAGNOSES: - Other terminal gauger (current) drug therapy - Gastro-esophageal reflux disease without esophagitis - Allergy status to sulfonamides status - Bronchitis, not specified as acute or chronic - Personal history of nicotine dependence - Fever, unspecified - 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
[2019-06-14] MEDS ORDERED: CYCLOBENZAPRINE10 MG PO (17:28)
--- NOTE | 2019-06-15 11:26 | EKG ---
[facility] [address] [place] [address] Signed Normal sinus rhythm Normal ECG When compared with ECG of 29-JAN-2019 01:28, Nonspecific T wave abnormality, improved in Anterior leads Confirmed by YOANA MCCORMICK MD ([id number]) on 06/15/2019 11:26:27 AM Electronically Signed By: YOANA MCCORMICK MD 06/15/19 1126 PATIENT NAME: MARYELLEN BATES AIDEN Electrocardiogram DATE OF : 56 PHYSICIAN: YOANA MCCORMICK MD REPORT #: [id number] REPORT IS CONFIDENTIAL AND NOT TO BE RELEASED WITHOUT AUTHORIZATION
== END 2019-06-14 17:56 | disposition home or self-care (01) ==
LOC: ED 14:46
DX: R07.89 Other chest pain (principal); K21.9 Gastro-esophageal reflux disease without esophagitis; Z87.891 Personal history of nicotine dependence; Z85.820 Personal history of malignant melanoma of skin; Z88.1 Allergy status to other antibiotic agents; Z88.2 Allergy status to sulfonamides; Z79.899 Other long term (current) drug therapy
CPT/HCPCS: 93005; 93010; 96372; 99284-25; J1885

== ENCOUNTER 2020-01-04 20:00 | Emergency (ER) | payer OTHER ==
[~2020-01-04 20:00] MED LIST changes: +CYCLOBENZAPRINE10 MG PO
--- OUTSIDE RECORDS SUMMARY | 2020-01-04 20:02 | XMS ---
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 Care History Medical/Surgical 09/13/2018 [facility] - Patient is currently established with [facility]. If patient is seen in the ED during business hours. Please contact CHWs at [facility]. Care Recommendation: This patient has had [...] (12 MO.) 6 [facility] TOTAL 6 NOTE: Visits indicate total known visits. ED/UCC VISIT TRACKING (12 MO.) 01/04/2020 20:00 [facility] TYPE: Emergency COMPLAINT: - CHEST PRESSURE 06/14/2019 14:47 [facility] TYPE: Emergency COMPLAINT: - BACK AND RIB PAIN, NON INJ DIAGNOSES: - Gastro-esophageal reflux disease without esophagitis - Allergy status to sulfonamides status - Other chest pain - Personal history of malignant melanoma of skin - Other longterm (current) drug therapy - Personal history of nicotine dependence - Allergy status to other antibiotic agents status - Chest pain, unspecified 01/29/2019 13:25 [facility] TYPE: Emergency COMPLAINT: - WEAKNESS AND DIARRHEA DIAGNOSES: - Nicotine dependence, unspecified, uncomplicated - Gastro-esophageal reflux disease without esophagitis - senior care (current) use of oral hypoglycemic drugs - Allergy status to sulfonamides status - Noninfective gastroenteritis and colitis, unspecified - Allergy status to other antibiotic agents status - Diarrhea, unspecified - Other intermediate accountant (current) drug therapy 01/29/2019 01:17 [facility] TYPE: Emergency COMPLAINT: - WEAKNESS DIAGNOSES: - Allergy status to other antibiotic agents status - Gastro-esophageal reflux disease without esophagitis - Syncope and collapse - Nicotine dependence, unspecified, uncomplicated - Dehydration - Other intermediate accountant (current) drug therapy - Allergy status to sulfonamides status - lobsterman (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 [place] TYPE: Emergency COMPLAINT: - ABD PAIN/BACK PAIN DIAGNOSES: - Left upper quadrant pain - Right upper quadrant pain - Allergy status to sulfonamides status - Unspecified abdominal pain - Allergy status to other antibiotic agents status - Nicotine dependence, unspecified, uncomplicated INPATIENT VISIT TRACKING (12 MO.) No inpatient visits to display in this time frame [id number]
--- NOTE | 2020-01-05 07:15 | EKG ---
[facility] [address] [place] [address] Signed Sinus rhythm with frequent premature ventricular complexes Otherwise normal ECG When compared with ECG of 14-JUN-2019 14:55, premature ventricular complexes are now present Confirmed by BIN RODAS MD ([id number]) on 01/05/2020 7:15:38 AM Electronically Signed By: BIN RODAS MD 01/05/20 0715 PATIENT NAME: MARYELLEN BATES AIDEN Electrocardiogram DATE OF : 56 PHYSICIAN: BIN RODAS MD REPORT #: [id number] REPORT IS CONFIDENTIAL AND NOT TO BE RELEASED WITHOUT AUTHORIZATION
== END 2020-01-04 21:07 | disposition home or self-care (01) ==
LOC: ED 20:00
DX: I49.3 Ventricular premature depolarization (principal); K21.9 Gastro-esophageal reflux disease without esophagitis; F17.200 Nicotine dependence, unspecified, uncomplicated; Z88.2 Allergy status to sulfonamides; Z79.899 Other long term (current) drug therapy
CPT/HCPCS: 71045; 80053; 83735; 84484; 85025; 93005; 93010; 99285-25

== ENCOUNTER 2022-07-15 08:44 | Emergency (ER) | payer OTHER ==
[~2022-07-15] VITALS: Ht 162.6 cm; Wt 83.0 kg
[2022-07-15] MEDS ORDERED: ESCITALOPRAM OX20 MG PO (08:55)
== END 2022-07-15 09:19 | disposition home or self-care (01) ==
LOC: ED 08:44
DX: S60.222A Contusion of left hand, initial encounter (principal); K21.9 Gastro-esophageal reflux disease without esophagitis; F17.200 Nicotine dependence, unspecified, uncomplicated; Z88.2 Allergy status to sulfonamides; Z88.1 Allergy status to other antibiotic agents; Z79.899 Other long term (current) drug therapy; W19.XXXA Unspecified fall, initial encounter
CPT/HCPCS: 73130; 99283-25

== ENCOUNTER 2022-08-12 11:21 | Emergency (ER) | payer OTHER ==
[~2022-08-12] VITALS: Ht 162.6 cm; Wt 84.7 kg
[~2022-08-12 11:21] MED LIST changes: +ESCITALOPRAM OX20 MG PO
--- OUTSIDE RECORDS SUMMARY | 2022-08-12 11:28 | XMS ---
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 Care History Medical/Surgical 01/05/2020 [facility] Follow up visit with Dr. Gross on 01/06/2020 09/13/2018 [facility] - [facility] is currently established [facility] [...] providing care. E.D. VISIT COUNT (12 MO.) 2 [facility] TOTAL 2 NOTE: Visits indicate total known visits. ED/UCC VISIT TRACKING (12 MO.) 08/12/2022 11:21 [facility] TYPE: Emergency COMPLAINT: - COUGH 07/15/2022 08:45 [facility] TYPE: Emergency COMPLAINT: - LT HAND INJURY DIAGNOSES: - Allergy status to sulfonamides - Gastro-esophageal reflux disease without esophagitis - Nicotine dependence, unspecified, uncomplicated - Allergy status to other antibiotic agents - Other [facility] (current) drug therapy - Unspecified fall, initial encounter - Pain in left hand - Contusion of left hand, initial encounter INPATIENT VISIT TRACKING (12 MO.) No inpatient visits to display in this time frame [id number]
[2022-08-12] MEDS ORDERED: IPRAT-ALBUT 0.5-3 ML INH (12:34)
[2022-08-12] MEDS ORDERED: PREDNISONE20 MG PO (12:34)
== END 2022-08-12 12:42 | disposition home or self-care (01) ==
LOC: ED 11:21
DX: J44.0 Chronic obstructive pulmonary disease with (acute) lower respiratory infection (principal); J44.1 Chronic obstructive pulmonary disease with (acute) exacerbation; J20.9 Acute bronchitis, unspecified; K21.9 Gastro-esophageal reflux disease without esophagitis; F17.200 Nicotine dependence, unspecified, uncomplicated; Z88.1 Allergy status to other antibiotic agents; Z88.2 Allergy status to sulfonamides; Z79.899 Other long term (current) drug therapy; Z85.828 Personal history of other malignant neoplasm of skin
CPT/HCPCS: 71045; 94640; 99283-25; J7512

== ENCOUNTER 2023-07-01 11:03 | Emergency (ER) | payer MEDICARE, OTHER ==
[~2023-07-01] VITALS: Ht 162.6 cm; Wt 89.8 kg
[~2023-07-01 11:03] MED LIST changes: +IPRAT-ALBUT 0.5-3 ML INH; +PREDNISONE20 MG PO
--- OUTSIDE RECORDS SUMMARY | 2023-07-01 11:06 | XMS ---
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 Care History Medical/Surgical 01/05/2020 [facility] Follow up visit with Dr. Chance on 01/06/2020 09/13/2018 [facility] - Patient is currently established with [facility]. If patient is seen in the ED during business hours. Please contact CHWs at [facility]. Care Recommendation: This patient has had [...] care. E.D. VISIT COUNT (12 MO.) [address] [facility] TOTAL 3 NOTE: Visits indicate total known visits. ED/UCC VISIT TRACKING (12 MO.) 07/01/2023 11:04 [facility] TYPE: Emergency COMPLAINT: - LACERATION 08/12/2022 11:21 [facility] TYPE: Emergency COMPLAINT: - COUGH DIAGNOSES: - Acute bronchitis, unspecified - Allergy status to other antibiotic agents - Allergy status to sulfonamides - Chronic obstructive pulmonary disease with (acute) exacerbation - Chronic obstructive pulmonary disease with (acute) lower respiratory infection - Cough, unspecified - Gastro-esophageal reflux disease without esophagitis - Nicotine dependence, unspecified, uncomplicated - Other long chain quiller tender (current) drug therapy - Personal history of other malignant neoplasm of skin 07/15/2022 08:45 [facility] TYPE: Emergency COMPLAINT: - LT HAND INJURY DIAGNOSES: - Allergy status to other antibiotic agents - Allergy status to sulfonamides - Contusion of left hand, initial encounter - Gastro-esophageal reflux disease without esophagitis - Nicotine dependence, unspecified, uncomplicated - Other [facility] (current) drug therapy - Pain in left hand - Unspecified fall, initial encounter INPATIENT VISIT TRACKING (12 MO.) No inpatient visits to display in this time frame [email or web address]
[2023-07-01] MEDS ORDERED: DULOXETINE HCL20 MG PO (11:11)
[2023-07-01] MEDS ORDERED: GABAPENTIN300 MG PO (11:11)
[2023-07-01] MEDS ORDERED: AMOX TR-K CLV1 EAC1 PO (11:42)
[2023-07-01 12:35] VITALS: BP 155/90
== END 2023-07-01 12:35 | disposition home or self-care (01) ==
LOC: ED 11:03
DX: S61.432A Puncture wound without foreign body of left hand, initial encounter (principal); S61.512A Laceration without foreign body of left wrist, initial encounter; J44.9 Chronic obstructive pulmonary disease, unspecified; F17.200 Nicotine dependence, unspecified, uncomplicated; Z23 Encounter for immunization; W55.01XA Bitten by cat, initial encounter; Z88.1 Allergy status to other antibiotic agents; Z79.890 Hormone replacement therapy; Z79.899 Other long term (current) drug therapy
CPT/HCPCS: 90471; 90715; 99283-25

== ENCOUNTER 2023-09-26 10:37 | Emergency (ER) | payer OTHER, MEDICARE ==
[~2023-09-26] VITALS: Ht 162.6 cm; Wt 90.0 kg
[~2023-09-26 10:37] MED LIST changes: +DULOXETINE HCL20 MG PO; +GABAPENTIN300 MG PO
[2023-09-26 12:55] VITALS: BP 142/82
== END 2023-09-26 12:53 | disposition home or self-care (01) ==
LOC: ED 10:37
DX: S50.02XA Contusion of left elbow, initial encounter (principal); J44.9 Chronic obstructive pulmonary disease, unspecified; F17.200 Nicotine dependence, unspecified, uncomplicated; W18.30XA Fall on same level, unspecified, initial encounter; Z88.2 Allergy status to sulfonamides; Z88.8 Allergy status to other drugs, medicaments and biological substances; Z79.899 Other long term (current) drug therapy
CPT/HCPCS: 73080; 99283-25